=== PATIENT | female | born 1950 | race African-American/Black ===

== ENCOUNTER 2022-10-03 10:27 | Emergency (ER) | payer OTHER, MEDICAID ==
[~2022-10-03] VITALS: Ht 157.5 cm; Wt 52.0 kg
[~2022-10-03 10:27] MED LIST: AMLO5TAB4 PO; ASPI-1497 PO; COMBIVENT; COR3 PO; LEVO50TA PO; PREDNISONE; QVAR; XOPENEX
[2022-10-03] MEDS ORDERED: KETOROLAC 30MG/ML VIAL IV STA (10:47)
[2022-10-03] MEDS ORDERED: SODIUM CHLORIDE 0.9% 1,000 ML IV ONE (11:00)
[2022-10-03 12:41] LABS: BASOPHILS % 0.7 % (0.0-2.0); EOSINOPHILS % 1.8 % (0.0-5.0); HEMATOCRIT. 41.9 % (36.0-48.0); HEMOGLOBIN. 14.3 g/dL (12.0-16.0); LYMPHOCYTES % 49.1 % (20.0-50.0); MEAN CORPUSCULAR HEMOGLOBIN 32.2 pg (28.0-32.0); MEAN CORPUSCULAR VOLUME 93.9 fL (81.0-99.0); MONOCYTES % 8.5 % (2.0-8.0); NEUTROPHILS % 39.9 % (40.0-76.0); PLATELET 107 x1000/uL (130-400); RED BLOOD CELL COUNT 4.46 mill/uL (4.2-5.4); RED CELL DISTRIBUTION WIDTH 13.8 % (11.6-14.6)
[2022-10-03 12:44] LABS: CLARITY URINE CLEAR (CLEAR); COLOR URINE YELLOW (YELLOW); KETONES URINE NEGATIVE (NEGATIVE); LEUKOCYTE ESTERASE URINE NEGATIVE (NEGATIVE); NITRITE URINE NEGATIVE (NEGATIVE); OCCULT BLOOD URINE NEGATIVE (NEGATIVE); PROTEIN URINE NEGATIVE (NEGATIVE); SPECIFIC GRAVITY URINE 1.009 (1.005-1.030); UROBILINOGEN URINE 0.2 E.U./dL (0.2-1.0)
[2022-10-03 12:48] LABS: CHLORIDE 109 mEq/L (98-107)
[2022-10-03 14:00] VITALS: BP 155/93
[2022-10-03] MEDS ORDERED: KETOROLAC 15MG/ML VIAL IV NR (14:18)
== END 2022-10-03 15:45 | disposition home or self-care (01) ==
LOC: ER 10:27
DX: R51.9 Headache, unspecified (principal); R53.83 Other fatigue; I10 Essential (primary) hypertension; E11.9 Type 2 diabetes mellitus without complications; J44.9 Chronic obstructive pulmonary disease, unspecified
CPT/HCPCS: 36415; 70450; 71045; 80053; 81003; 82962; 83735; 83880; 84484; 85025; 87086; 93005; 96361; 96374; 99285; J1885; J7030

== ENCOUNTER 2023-08-29 16:50 | Emergency (ER) | payer MEDICARE, MEDICAID ==
[~2023-08-29] VITALS: Ht 152.4 cm; Wt 55.0 kg
[2023-08-29 16:54] VITALS: BP 158/91; PULSE 87; RESP 16; O2SAT 100
[2023-08-29] MEDS ORDERED: ACETAMINOPHEN 325MG TABLET PO ONE (17:45)
[2023-08-29 18:02] VITALS: TEMP 98.3
== END 2023-08-29 21:09 | disposition home or self-care (01) ==
LOC: ER 16:50
DX: M25.571 Pain in right ankle and joints of right foot (principal); I10 Essential (primary) hypertension; G30.9 Alzheimer's disease, unspecified; R51.9 Headache, unspecified; J44.9 Chronic obstructive pulmonary disease, unspecified; W18.39XA Other fall on same level, initial encounter; Y93.89 Activity, other specified; Y92.89 Other specified places as the place of occurrence of the external cause; Y99.8 Other external cause status
CPT/HCPCS: 73610; 99284

== ENCOUNTER 2024-05-29 13:55 | Emergency (ER) | payer MEDICARE, MEDICAID ==
[~2024-05-29] VITALS: Ht 165.1 cm; Wt 55.0 kg
[~2024-05-29 13:55] MED LIST changes: -ASPI-1497 PO
[2024-05-29 14:18] VITALS: O2SAT 100
[2024-05-29 16:14] LABS: HEMATOCRIT. 37.3 % (36.0-48.0); HEMOGLOBIN. 12.5 g/dL (12.0-16.0); MEAN CORPUSCULAR HEMOGLOBIN 32.1 pg (28.0-32.0); MEAN CORPUSCULAR HGB CONC 33.6 g/dL (31.0-37.0); MEAN CORPUSCULAR VOLUME 95.3 fL (81.0-99.0); MEAN PLATELET VOLUME 9.6 fl (7.4-10.4); PLATELET 87 x1000/uL (130-400); RED BLOOD CELL COUNT 3.91 mill/uL (4.2-5.4); RED CELL DISTRIBUTION WIDTH 14.1 % (11.6-14.6); WHITE BLOOD COUNT 3.1 x1000/uL (4.5-11.0)
[2024-05-29 16:15] LABS: DIFFERENTIAL COMMENT 1
[2024-05-29 16:18] LABS: CHLORIDE 109 mEq/L (98-107); POTASSIUM 3.9 mEq/L (3.5-5.1); SODIUM 140 mEq/L (136-145)
[2024-05-29 16:19] LABS: CALCIUM 8.9 mg/dL (8.7-10.4); CARBON DIOXIDE 27 mEq/L (21-32)
[2024-05-29 16:24] LABS: CREATININE 0.9 mg/dL (0.6-1.0); GLUCOSE 89 mg/dL (70-105); UREA NITROGEN BLOOD 10 mg/dL (9-23)
[2024-05-29] MEDS: SODIUM CHLORIDE 0.9% 1,000 ML IV ONE (16:24)
[2024-05-29 16:25] LABS: PROTHROMBIN TIME 11.3 sec (9.6-11.0); TROPONIN I HIGH SENSITIVITY 8 ng/L (3.0-34)
[2024-05-29 16:26] LABS: ETHANOL BLOOD < 10 mg/dL (<10)
[2024-05-29 18:00] LABS: PLATELET ESTIMATE DECREASED
[2024-05-29 23:23] VITALS: BP 161/94; PULSE 75; O2SAT 98
== END 2024-05-29 23:32 | disposition home or self-care (01) ==
LOC: ER 13:55
DX: T67.5XXA Heat exhaustion, unspecified, initial encounter (principal); F17.200 Nicotine dependence, unspecified, uncomplicated; R51.9 Headache, unspecified; I10 Essential (primary) hypertension; E11.9 Type 2 diabetes mellitus without complications; Z86.73 Personal history of transient ischemic attack (TIA), and cerebral infarction without residual deficits; X58.XXXA Exposure to other specified factors, initial encounter; Y93.89 Activity, other specified; Y92.89 Other specified places as the place of occurrence of the external cause; Y99.8 Other external cause status
CPT/HCPCS: 80048; 80320; 83880; 85025; 85610; 84484; 36415; 71045; 70450; 93005; 96360; 99285; J7030; G0480